=== PATIENT | female | born 1985 | race Caucasian/White ===

== ENCOUNTER 2018-12-10 20:59 | Inpatient (IN) | payer BC ==
[~2018-12-10] VITALS: Ht 170.2 cm; Wt 93.2 kg
[2018-12-10] MEDS ORDERED: MULTI VITAMINS1 TAB PO (21:24)
[2018-12-10 21:30] VITALS: BP 132/80; PULSE 71; TEMP 97.6
[2018-12-10 22:00] VITALS: BP 141/60; PULSE 81
[2018-12-10 22:30] VITALS: BP 126/81; PULSE 83
[2018-12-10 23:00] VITALS: BP 126/78; PULSE 82
--- NOTE | 2018-12-10 23:00 | NUR ---
2104- Patient ambulatory to [facility] with , De, and SEYMOUR Kruger. Patient and oriented to room. Patient into restroom to void and change into gown. 2109- Patient into bed. EFM and TOCO on and tracing. Patient presents to L&D with complaints of contractions since 1729 today, which have increased in intensity since 2029. Patient states contractions have been coming every 2-3 minutes since 2029. Patient denies LOF or bleeding today. Patient has had pink-tinged discharge since yesterday at [facility] that she is very worried about. Patient was reassured that minimal spotting is normal after a cervical exam. Patient admits her fluid intake has been decreased today due to being uncomfortable with contractions. Patient denies taking any pain medication today. TOCO tracing contractions on EFM, but unable to palpate consistent contractions at this time. Patient is coping well and breathing heavily through contraction pattern. 2114- SVE -/-2 2214- SVE 2224- See Physician Notification. 2314- SVE / 232- See Physician Notificaiton.
[2018-12-10 23:30] VITALS: BP 123/74; PULSE 85
[2018-12-10 23:42] LABS: BASO % 0.2 % (0.0-2.0); EOS # 0.1 (0.0-0.7); EOS % 0.5 % (0-4.0); GRAN # 10.8 (1.4-6.5); GRAN % 84.1 % (42.2-75.2); HEMATOCRIT 40.2 % (37.0-47.0); HEMOGLOBIN 13.7 g/dl (12.5-16.0); LYMPH # 1.2 (1.2-3.4); LYMPH % 9.3 % (20.0-51.0); MEAN CELL VOLUME 92 fl (80.0-100.0); MEAN CORPUSCULAR HEMOGLOBIN 31 pg (27.0-31.0); MEAN CORPUSCULAR HGB CONC 34 g/dl (33.0-37.0); MEAN PLATELET VOLUME 12.9 fl (7.4-10.4); MONO # 0.7 (0.1-0.6); MONO % 5.4 % (1.7-9.3); PLATELET COUNT 151 K/mm3 (130-400); RED BLOOD COUNT 4.38 M/mm3 (4.10-5.30); REDCELL DISTRIBUTION WIDTH-CV 12.8 % (11.5-14.5)
[2018-12-11] VITALS (11 sets, daily range): BP systolic 110–139; BP diastolic 61–91; PULSE 68–104; TEMP 97.9–98.8
--- NOTE | 2018-12-11 | NUR ---
2330- IV started. IVF bolus infusing. Consents signed. Plan of care and labor process discussed at length with patient and . Patient understands [facility] policies for delivery and on-call physician will be updated on status. Patient is requesting to use hot tub at this time. Explained to patient hot tub is not an option at this time due to absent/minimal variabililty with FHR. 2350- Patient complaining of increased back and bottom pressure during contractions. Patient assisted back to bed from standing position. SVE 5-6/80/-2. 0000- Report given and care assumed by SEYMOUR Nino.
--- NOTE | 2018-12-11 00:10 | NUR ---
Pt sitting on birthing ball. EFM intermittently tracing maternal HR. EFM monitors repositioned.
--- NOTE | 2018-12-11 00:52 | NUR ---
Pt off EFM and toco monitors to shower for relaxation. Safety information reviewed and call light and precautions. at pt's side.
--- NOTE | 2018-12-11 01:55 | NUR ---
Pt off EFM and toco monitors to shower for relaxation. Safety information with call light and precautions reviewed. Pt's at her side.
--- NOTE | 2018-12-11 03:10 | NUR ---
0310- FHR down to 90's x5 mins. Position changes from LL to RL and back to LL done. IV fluid bolus started. 0315- FHR return to baseline 135.
--- NOTE | 2018-12-11 03:30 | NUR ---
Spoke with Dr. Domingo for an update on pt's status with SVE, urgency to push and FHR tracing reviewed. No new orders at this time. on his way in for delivery.
--- NOTE | 2018-12-11 03:51 | NUR ---
Dr. Domingo at the bedside. FHR tracing reviewed.
--- NOTE | 2018-12-11 04:08 | NUR ---
0408- SROM with clear fluid. 0409- Dr. Domingo at the bedside. 0410- Pt complete and pushing with contractions. Pt set up for delivery. 0424- of viable female . Baby placed on mom's abdomen. Cords clamped and cut. Care of the given to nursery RN at the bedside. 0428- of placenta. Pitocin started at 333ml/hr per order and protocol. Fundus firm with massage. Tiff CARTERL.
--- NOTE | 2018-12-12 11:26 | NUR ---
[facility]
== END 2018-12-11 17:30 | disposition home or self-care (01) | DRG 807 ==
LOC: LDRO 20:59 → LDR 12-11 00:10 → OB 12-11 00:10
PROVIDERS: Obstetrics & Gynecology; ADMIT Obstetrics & Gynecology
PROC: 10E0XZZ Delivery of Products of Conception, External Approach (ICD-10-PCS; principal; 2018-12-11)
PROC: 0KQM0ZZ Repair Perineum Muscle, Open Approach (ICD-10-PCS; 2018-12-11)
DX: O70.1 Second degree perineal laceration during delivery (principal); Z37.0 Single live birth; Z3A.39 39 weeks gestation of pregnancy; Z88.2 Allergy status to sulfonamides; O76 Abnormality in fetal heart rate and rhythm complicating labor and delivery
CPT/HCPCS: J2590; J7120